=== PATIENT | female | born 1945 | race Caucasian/White ===

== ENCOUNTER 2024-09-24 08:47 | Observation (INO) ==
--- NOTE | 2024-08-22 09:54 | PAT Medication Instructions ---
Medication Instructions Date of Service August 22, 2024 Home Medications aspirin-caffeine 1,000 mg-65 mg oral powder packet 1 ea PO BID PRN Pain bisoprolol 5 mg-hydrochlorothiazide 6.25 mg tablet 1 tab PO HS cod liver oil 1 cap PO HS lisinopril 10 mg tablet 10 mg PO HS lorazepam 1 mg tablet 1 mg PO HS ASK your surgeon for instructions aspirin-caffeine 1,000 mg-65 mg oral powder packet 1 ea PO BID PRN Pain STOP taking 2 weeks before surgery (or as soon as possible if surgery is within 2 weeks) cod liver oil 1 cap PO HS Take evening before surgery bisoprolol 5 mg-hydrochlorothiazide 6.25 mg tablet 1 tab PO HS lisinopril 10 mg tablet 10 mg PO HS lorazepam 1 mg tablet 1 mg PO HS MORNING OF SURGERY: NOTHING TO EAT OR DRINK AFTER MIDNIGHT Other Notes If you have any questions please call us at [phone] or [phone] or [phone] or [phone]
--- NOTE | 2024-09-08 11:16 | Anesthesiology Consultation ---
Date of Service September 08, 2024 Assessment & Plan (1) Encounter for pre-operative examination: - medical clearance 08/20/24: "...heaviness in her chest and shortness of breath...scheduled to have surgery for her knee...gasping for breath when she is watching tv...atypical chest pain and shortness of breath...stress test...did complete a lexiscan stress test that was NEGATIVE for ischemia...symptoms have also resolved...can proceed to the scheduled surgery on 09/24/24 without any ad ditional testing..." - Outpatient joint assessment: Patient is currently scheduled for inpatient pathway. If re-evaluated and patient/surgeon requests outpatient pathway, patient is not ideal candidate for outpatient joint program. Chart Review Chart Review: Acceptable Risk for Surgery and Patient seen in Pre Admission Testing Teaching & Discussion Pre-Anesthesia Teaching/Discussion Notes: Instructed NPO after midnight before surgery, except medications with 15 cc of water. Medication instructions provided according to the PAT guidelines. History Surgery Operation Date: 09/24/24 09:05 Proposed Procedures p Right Total Knee Arthroplasty - Nav Starks MD Height/Weight Height: 5 ft 4 in Weight: 83.1 kg Allergies Allergy/AdvReac Type Severity Reaction Status Date / Time Sulfa (Sulfonamide Allergy Severe Tongue Verified 09/03/24 09:33 Antibiotics) swelling adhesive tape Allergy Intermediate Skin Verified 09/03/24 09:33 irritation Medications Home Medications Medication Instructions Recorded Confirmed Last Taken aspirin-caffeine 1,000 mg-65 mg 1 ea PO BID PRN Pain 08/21/24 08/21/24 Unknown oral powder packet bisoprolol 5 1 tab PO HS 08/21/24 08/21/24 Unknown mg-hydrochlorothiazide 6.25 mg tablet cod liver oil 1 cap PO HS 08/21/24 08/21/24 Unknown lisinopril 10 mg tablet 10 mg PO HS 08/21/24 08/21/24 Unknown lorazepam 1 mg tablet 1 mg PO HS 08/21/24 08/21/24 Unknown Past Medical History Medical History (Updated 09/08/24 @ 11:31 by Debbie Hayden PA-C) Anxiety Stable Chronic fatigue Since Covid infection, considered "long covid". doing well despite. Depression History of COVID-19 (~2021) ~2021: fatigue, moderate symptoms > persistent fatigue History of Lyme disease (~2020) ~2020, treated Hx of basal cell carcinoma s/p excision Hx of colonic polyps Hx of melanoma of skin (2022) Shoulder Hypertension controlled, stable per pt Osteoarthritis Patient denies h/o stroke, seizures, heart attack, heart failure, DM, blood clots/DVTs or blood transfusions. Exercise / Class Metabolic Activity III < 4 Walking/Shop/Light housework (denies chest discomfort or shortness of breath with usual activities) Past Family History Family History Other No family history of adverse response to anesthesia Past Surgical History Surgical History History of cataract surgery R/L History of colonoscopy History of left oophorectomy History of Mohs micrographic surgery for skin cancer History of root canal procedure Hx of melanoma excision (2022) Hx of motion sickness "Severe" - has used the scopalamine patch in the past PONV (postoperative nausea and vomiting) Past Anesthesia History No Hx of Anesthesia Complications and No Family Hx of Anesthesia Complications History of PONV History of PONV (has used scop patch in the past with benefit) and Hx of Motion Sickness Social History Smoking Status: Never smoker Do You Dip or Chew Tobacco: No Hx Alcohol Use: Yes Alcohol type: wine alcohol intake frequency: holidays/special occasions only Hx Substance Use: No substance use type: does not use Review of Systems Snoring, denies witnessed apneas. Patient denies chest pain, shortness of breath, dyspnea on exertion, reflux, fever, chills, cough, wheezing, or palpitations. Physical Exam Vital Signs Vitals BP 142/85 P 65 TEMP 98.2 SP02 95% on RA RESP 18 Physical Patient resting comfortably in chair in no acute distress, alert and oriented, responding appropriately throughout visit Full cervical extension range of motion without pain TMD 3.5 finger breadths Mallampati Score 2 Dentition: many crowns, denies chipped or loose teeth, caps, implants or bridges Lungs: normal respiratory effort. Good air movement, clear throughout to auscultation, no adventitious breath sounds Cardiac: regular rate and rhythm, no murmurs noted Carotid arteries: negative bruit bilat Testing Laboratory Results 08/20/24 WBC: 8.3 H/H: 15/45 PLATELETS: 173,000 SODIUM: 135 POTASSIUM: 3.8 CHLORIDE: 100 CO2: 26 BUN: 22 CREATININE: 0.8 GLUCOSE: 113 Alk phos: 97 AST: 36 ALT: 72 Electrocardiogram Date: 08/20/24 Sinus rhythm, rate 65 bpm Possible LA enlargement Chest X-Ray Date: 09/08/24 No acute findings. Stress Test Date: 09/04/24 ECG negative for ischemia
--- NOTE | 2024-09-24 06:18 | History & Physical Bridge Note ---
Date of Service September 24, 2024 History & Physical Bridge Note I have examined the patient, reviewed the History & Physical and in the interval since the performance of the History & Physical I have noted the following changes of clinical significance: consent and site verified.no changes noted
[~2024-09-24 08:47] MED LIST: BUPIVACAINE 0.5 % 5 MG/1 ML PF 10ML VIAL ONE; ROPIVACAINE 0.5% 5 MG/ML 30 ML VIAL ONE
[2024-09-24] MEDS ORDERED: ONDANSETRON INJ 2 MG/ML 2 ML VIAL ONE (09:01)
[2024-09-24] MEDS ORDERED: MIDAZOLAM HCL 1 MG/ML 2ML VIAL ONE (09:01)
[2024-09-24] MEDS ORDERED: PROPOFOL IV EMULSION 10 MG/ML 20 ML VIAL IV ONE (09:01)
[2024-09-24] MEDS ORDERED: DEXAMETHASONE SOD INJ 4 MG/ML VIAL ONE (09:01)
[2024-09-24] MEDS ORDERED: fentaNYL citrate PF 100 MCG/2 ML VIAL ONE (09:02)
[2024-09-24] MEDS: LR 60ML/HR IV SCH (09:22)
[2024-09-24] MEDS: LR 500ML BOLUS, THEN 15ML/HR IV SCH (09:22)
--- OUTSIDE RECORDS SUMMARY | 2024-09-24 09:22 | External Medical Summary | Continuity of Care Document ---
Author Name Unknown Organization [facility] [address] [id number] Address [address] [place] [id number] Encounter [facility] [id number] Date(s): 09/08/24 - 09/08/24 [facility] [address] [facility] [address] [facility] [address] [place] [id number] Encounter Diagnosis Osteoarthritis of right knee(Discharge Diagnosis) - 09/08/24 Preop examination(Discharge Diagnosis) - 09/08/24 Discharge Disposition: Home or Self Care Attending Physician: MD Tereza, Nav Bellamy Encounter Type: Clinic Allergies, Adverse Reactions, Alerts Substance Criticality Severity Reaction Reaction Severity Status sulfa drugs Unable to assess criticality Moderate swollen tong Active Adhesive bandage 1 Unable to assess criticality Mild Skin rash Active 1Patient states she does better with paper tape Medications bisoprolol-hydrochlorothiazide 5 mg-6.25 mg oral tablet TAKE 1 TABLET BY MOUTH ONCE DAILY Start Date: 08/14/24 Status: Ordered Repeat number: 1 lisinopril 10 mg oral tablet TAKE 1 TABLET BY MOUTH ONCE DAILY AT NIGHT Start Date: 08/14/24 Status: Ordered Repeat number: 1 LORazepam 1 mg oral tablet Start: 08/14/24 3:19:00 PM EST Start Date: 08/14/24 Status: Ordered Repeat number: 1 Mental Status 09/08/24 Barriers to Learning one year None evide nt Mandatory Health Literacy Documentation Yes Health Literacy Communication Barriers N ever Primary Language Belizean Problem List Condition Confirmation Course Effective Dates Status H ealth Status Informant Hypertension Confirmed Active Osteoarthritis of right knee Confirmed Active Diagnosis Diagnosis Type Effective Dates Health Status Clinical Service Informant Osteoarthritis of right knee Discharge Diagnosis 09/08/24 Preop examination Discharge Diagnosis 09/08/24 Non-Specified Procedures Procedure Date Related Diagnosis Body Site Status REMOVAL OF OVARY(S) Compl eted Vital Signs Most recent to oldest [Reference Range]: 1 Height 159.5 cm (09/08/24 8:53 AM) Patient Weight 82.7 kg (09/08/24 8:53 AM) Body Mass Index 32.51 kg/m2 (09/08/24 8:53 AM) Temperature [36.5-37.9 DegC] 36.4 DegC *LOW* (09/08/24 8:53 AM) Heart Rate 64 bpm (09/08/24 8:53 AM) Blood Pressure 144/82mmHg (09/08/24 8:53 AM) Social History Social History Type Response Smoking Status Never smoked cigaret carlos Sex Sex Representation Female (finding) Pre-OP H & P * LAINE Wu, Prashanth: PERFORM, MODIFY Event Display: Pre-OP H & P Authored Date: [id number] Name:KEYA WEEKS Patient Number:[id number] :1945 Date of Service:09/08/2024 Chief Complaint Pre op appt History of Present Illness Keya is an 79 year oldfemale who presents to the clinic today for a history and physical examination. She is scheduled forright total knee arthroplasty with 09/24/2024 at [facility]. She has had knee pain for 3 yearswhich has progressively worsened with time. She has had viscosupplementation as well as cortisone injections withlimited relief, almost no relief recently.Her pain is affecting her ability to function at this point. She takes aspirin 325 mg 2 tabs twice daily for the pain generally. She met with Dr. Starks todayandis agreeable with proceeding withsurgery. Patient underwent a corticosteroid injection into the left knee on 08/14/2024. Patient recently met with her primary care providerin preparation for this surgery. She was evaluated for some shortness of breath that she has been experiencingwhen carrying groceries. She attributes this toher knee bothering her, being somewhat overweight, and being deconditioned. She underwent a stress testand was subsequently clearedby her primary care for surgery. She is scheduled to seepreadcarteret health caretestingtoday. At her last primary care appointment theyobtained an EKG and ordered a CBC and a CMP. Patient lives at homealone however she had a severalfriends and contacts in the area whowill be able to help her. She would like to participate withphysical therapyat home for the first 2 weeks then [facility] in the past. She currently has a rolling walker as well as a shower chair but needs to obtainaraised toilet seat. She denies any history of blood clots, MRSA infection, bleeding or clotting disorders. Has not had any recent illnesses, fever, chills, chest pain, cough, abdominal pain, nausea, vomiting, diarrhea, or urinary symptoms. She has not had any recent dental infections nor does she have any dental work planned in theforeseeable future. Review of Systems Reviewed. Available in EMR. Physical Exam Vitals & Measurements T:36.4C HR:64(Monitored) BP:144/82 SpO2:99% HT:159.5cm WT:82.7kg WT:82.700kg(Dosing) BMI:32.51 BMI:32.51 kg/m2 CONSTITUTIONAL: well developed, well nourished. resting comfortably in no distress. pleasant. EARS: tm's without erythema or bulging. canals without erythema or edema. EYES: PERRL. conjunctiva normal MOUTH: oropharynx clear. dentition in good repair. no evidence of dental infection CARDIOVASCULAR: regular rate and rhythm. no murmurs, rubs, or gallops RESPIRATORY: no tachypnea. lungs clear to auscultation bilaterally ABDOMEN: normal bowel sounds MUSCULOSKELETAL: Right knee range of motion -10 to 110 degrees. Antalgic gaitsecondary to pain in the right knee with ambulation. NEUROLOGIC: no gross deficits Diagnostic Results Dr. Rodriguezviewedx-raysofboth kneesobtained on 08/14/2024showingmarked tricompartmental osteoarthritis with varus alignment, right worse than left. Assessment/Plan 1.Osteoarthritis of right knee Patient is scheduled for right total knee arthroplasty with Dr. Starks09/24/2024 at [facility]. She plans to stay overnight under observation with intent to return home the day after surgery ifable. History and physical performed today.Patient without any acute health concerns. She hadbeenevaluated by her primary care providerabout some shortness of breath that she has been experiencingwhich prompteda stress test that was normal. Patient thinks it is likely secondary toher knee bothering her, being slightly overweight,and being deconditioned. No other acute health concerns appreciated. She was subsequently cleared by her PCP for surgery. PCP note in chart. Expectant management discussedregarding surgery. Informed consentsurgery form completed byDr. Huang appointment prior Faraz&P. EKGobtained on 08/20/2024through primary care providerreviewed with no obvious concerns. Available in chart. Patient hada CBC and CMP obtainedthrough her primary care provider at that sametime, also available in chart. Additionalorders includingblood work, urinalysis, chest x-ray will be obtained at herpreadmissionsappointment following this appointment. Pain management plan: Patient will takePercocet following surgery.PDMP reviewed with no concerns. Medication will be senton day of discharge from the hospital. Dental antibioticprophylaxis was reviewed with hertoday. This can be discussed at [id number] visit. Patient was interested in a temporary disability parking placard. Paperwork was completed. [facility] to have it [facility]. DVT prophylaxis: Eliquis Patient was advised tohold her aspirinwhich she takes for pain7 days prior to surgery. She will holdall other NSAIDs 2 weeks before surgery. Encouraged her to switch toscheduled Tylenolup until midnightbefore her surgery. Dosing instructions reviewed. She will discuss her home medications withpreadmissions testingtoday to take and holdin the perioperative timeframe. Patient has a rolling walkerand shower chair. She will purchase a raised toilet seatthrough [employer]. Allergy profilesulfa drugs andBand-Aidadhesive. She does better with paper tape. [facility]. Sheunderstands to contact them to sched [facility] appointmentsstarting 2 weeks after surgery. She does not have any preferencesfor homehealth/PT. Prescriptions were provided for both today. She will need the protocol sheetather follow-up appointmentafter surgery. Reviewed the pertinent points of the surgery booklet with patient and encouraged to read through the entire booklet. Chlorhexidine wipes will be suppliedby her preadmissionsappointment. We reviewedthese instructions in the booklet. NPO after midnight the night before surgery. Follow up appointment 10/09 with Carlos Pablo PA-C at 13:30. Problem List/Past Medical History Ongoing Hypertension Osteoarthritis of right knee Medications Home bisoprolol-hydrochlorothiazide(bisoprolol-hydrochlorothiazide 5 mg-6.25 mg oral tablet) lisinopril(lisinopril 10 mg oral tablet) LORazepam(LORazepam 1 mg oral tablet) Allergies sulfa drugs (Moderate)swollen tong Adhesive bandage (Mild)Skin rash Social History Smoking Status Never smoked cigarettes Electronic Signature on File Electronically Reviewed/Signed by: Prashanth Wu PA-C Author Signature Dt/Tm:09/08/2024 02:36 PM Division of Sports Medicine Electronically Reviewed/Signed by: Nav Starks MD Cosigner Signature Dt/Tm: 09/08/2024 02:45 PM Manager Warehouse for Clinical Affairs, [facility] [place] Professor in Orthopaedics Medical Administrative Assistant, [facility] Sports Medicine Ortho Outpt Note * Cleo Zapata: PERFORM, MODIFY Event Display: Ortho Outpt Note Authored Date: [id number] Name:KEYA WEEKS Patient Number:[id number] :1945 Date of Service:09/08/2024 CHIEF COMPLAINT: Right knee pain and surgical consent. HPI: [id number] Shreyas presents today forevaluation of her right knee pain. She has been getting cortisone injections every 3 months for the last 2 years. She did try ROSENTHAL injections in her right knee with her last one being on July 07 and her last cortisone in April. She last had a leftknee cortisone injection on August 14, 2024.She is scheduled for right knee replacement on September 24. PHYSICAL EXAM: Focus on the right lower extremity: Femoral and sciatic nerve function intact. Hip motion supple and pain free Knee ROM: -10 - 110 DIAGNOSTIC REVIEW: I reviewed x-rays of both kneesdone previously which shows marked tricompartmental osteoarthritiswith varus alignment, right worse than left. IMPRESSION: Bilateral knee OA, right worse than left symptomatically and radiographically PLAN: Discussed risks, benefits, procedure, and recovery for right total knee replacement. Surgical consent obtained. H&P to be completed after evaluation today Follow-up as scheduled for surgery and post-operative appointments ATTESTATION: Cleo Williamson, scribing for and in the presence of, Nav Starks, on this date,09/08/2024 09:11:11. Electronic Signature on File Electronically Reviewed/Signed by: Cleo Zapata Author Signature Dt/Tm:09/08/2024 09:18 AM Electronically Reviewed/Signed by: Nav Satrks MD Cosigner Signature Dt/Tm: 09/08/2024 09:19 AM Manager Warehouse for Clinical Affairs, [facility] Professor in Orthopaedics Medical Administrative Assistant, [facility] Sports Medicine Insurance Providers Guarantor name: MICHELA Health Plan Information #: 2 Payer: [facility] Member Number: [id number] Policy Number: NA Group Number: NA Health Plan Information #: 1 Payer: MEDICARE Member Number: [id number] Policy Number: NA Group Number: NA
[2024-09-24] MEDS: TRANEXAMIC ACID 1,000 MG **IV Pre-op IV SCH (10:21)
[2024-09-24] MEDS: ceFAZolin 2000MG 2,000 MG/15 ML SYR IV SCH ×2 (10:48→18:24)
[2024-09-24] MEDS: ORTHO JOINT ANESTHETIC ONE (11:19)
[2024-09-24] MEDS: ROPIV 0.5% 246mg, Ketorolac 30mg, EPINEPHrine 0.5mg in NSS INFIL SCH (11:19)
[2024-09-24] MEDS ORDERED: ePHEDrine sulfate 50 MG/5 ML SYR ONE (11:26)
[2024-09-24] MEDS ORDERED: PHENYLEPHRINE 100MCG/ML 5ML SYR ONE (11:26)
[2024-09-24] MEDS ORDERED: ePHEDrine sulfate 50 MG/ML AMP ONE (11:36)
[2024-09-24] MEDS: TRANEXAMIC ACID 1,000 MG **IV Intra-op IV SCH (11:50)
--- NOTE | 2024-09-24 12:19 | Post Operative Brief Note ---
Immediate Post Op Note Date of Surgery September 24, 2024 Pre & Post Diagnosis Operation Date: 09/24/24 11:00 <No data on this case meets the specified criteria> Pre and postop diagnosis osteoarthritis right knee with flexion varus deformity pre and postop same I identified the patient and participated in the time-out.: Yes Procedure Operation Date: 09/24/24 11:00 <No data on this case meets the specified criteria> Cemented right total knee replacement Surgeon Nav Starks MD Treating Plant Operator rola/ no resident or fellow available Estimated Blood Loss 25 Findings Consistent with Post-Op Diagnosis Severe DJD with marked flexion varus deformity Fluids 1000 cc Complications None
--- NOTE | 2024-09-24 12:22 | Operative Report ---
Post Operative Report Pre & Post Diagnosis Operation Date: 09/24/24 11:00 <No data on this case meets the specified criteria> Osteoarthritis with flexion varus deformity right knee pre and postop diagnosis same I identified the patient and participated in the time-out.: Yes Procedure Operation Date: 09/24/24 11:00 <No data on this case meets the specified criteria> Cemented right total knee replacement Surgeon Nav Starks MD Internal Medicine Physician Assistant Adonisk/ no resident or fellow available Estimated Blood Loss 25 Findings Consistent with Post-Op Diagnosis Severe osteoarthritis with flexion varus deformity Fluids 1000 cc Specimens Bone pathology Drains None Complications None Indications Severe pain failed conservative management Description of Procedure After the patient was appropriate notified site verified consent verified antibiotics and has been given the right lower extremity was prepped and draped in his routine fashion tourniquet plated to 275 mmHg exsanguination limb with a rubber arthrograms for total of 48 minutes. Midline exposure utilized parapatellar arthrotomy performed synovectomy completed osteophytes resected. Distal femur entered cruciates resected tibia subluxated menisci resected. Was grade 4 disease extensive with marked clawing on the medial side of the medial side was very tight right extensive release to get the needed balance to neutral. Once this was all performed the distal femur was resected 11 mm proximal tibia 4 mm the extension gap was excellent. Tibia was then sized to a 3 and a femur to a 4 appropriate cutting block applied to the femur and the anterior posterior condylar and chamfer cuts made flexion gap checked it was excellent with a 6 mm meter spacer same as the extension gap. Box cut was then made a size 4 femur fit well. The tibia was then broached and reamed for size 3 and the trial spacing with a 6 and a 7 the sixth of the little bit more neutral extension. Was slightly tight in the 7 mm spacer. Patella was then everted and a 35 mm patella applied after a resection of roughly 8 mm. Seating holes were made patella tracked well. Ortho mix was then injected all about the knee trial implants were removed Ortho mix injected posteriorly the knee was then irrigated with Betadine Pulsavac and then soaked in Betadine for 3 minutes and then the permanent cemented into position tibia femur and patella in that order at 12 minutes Deflated minor bleeding points controlled lecture cautery EBL was roughly 25 cc. Trial spacer was then removed the permanent spacer seated the knee then closed at 40 degrees of flexion with #2 Vicryl 2-0 Vicryl standstill clips appropriate dressing was then applied the patient transferred recovery in satisfactory descending tolerated the procedure well. Family contacted. EBL again 25 cc or less crystalloid 1000 cc DVT prophylaxis to start tomorrow. Summary of implants myVBOuy rotating platform [employer]ynthe[employer] ATT UNE system. Size 4 right femur size 3 rotating platform tibial tray size 35 patella size 4 x 6 mm thick rotating platform polyethylene insert. I attest to the content of the Intraoperative Record and any orders documented therein. Any exceptions are noted below.
--- NOTE | 2024-09-24 12:23 | Orthopedic Progress Note ---
Date of Service September 24, 2024 Orthopedic Progress Note Patient underwent cemented right total knee replacement well. She is awake and alert. Denies chest pain shortness of breath fever chills nausea vomit or headache. Neurovascular check limited by spinal. Family contacted. Postop x- rays pending. Continue care pathway.
--- NOTE | 2024-09-24 12:24 | Discharge Summary ---
Date of Service September 25, 2024 Admission HPI Per Admitting Provider Admitted 23-hour to overnight admission for osteoarthritis right knee. Undergo cemented right total knee replacement. Principal Diagnosis Osteoarthritis right knee status post cemented right total knee replacement Discharge Data Allergies Allergy/AdvReac Type Severity Reaction Status Date / Time Sulfa (Sulfonamide Allergy Severe Tongue Verified 09/24/24 09:16 Antibiotics) swelling adhesive tape Allergy Intermediate Skin Verified 09/24/24 09:16 irritation Vaccinations None Consultations None Procedures Performed Operation Date: 09/24/24 11:00 <No data on this case meets the specified criteria> Cemented right total knee replacement Ordered Studies 09/24/24 05:00 US - OR guided needle placemen Routine Hospital Course (1) Status post right knee replacement: Care pathway for right total knee replacement Total Time Total Time Spent Total Time Spent (In Minutes): 10 Discharge Plan Discharge Items Patient Disposition: Home - Home Health Services Reason For Visit: Right Knee Osteoarthritis Discharge Diagnosis: Right knee status post right total knee replacement Condition on Discharge: Good Activity: Per Instructions section Lifting: Wait until after follow-up appointment Bathing: Keep incision dry Exercise/Sports: Wait until after follow-up appointment Driving/Machine Use: No driving until cleared by Dr. Starks Weightbearing: Full weightbearing Non-emergency contact: Surgeon Call non-emergency contact if: you have any medication questions, your pain is not controlled, your temperature is above 101, your wound has increased redness, your wound has increased drainage and your wound pain has increased Follow-up/Referrals: PCP,NO [Primary Care Provider] - Diet: Regular Addtl Attending Provider Instructions: DIET: * Resume previous diet. SPECIAL CARE INSTRUCTIONS: * Ice/Elevate as instructed. * Keep dressing clean, dry, intact. * Your surgical extremity may be discolored due to prepping agents used on the skin. A bluish-green tint is a normal variant and should not cause alarm. Call your doctor at [phone] if: * Temperature above 101 degrees * Pain not relieved by pain medicine ordered * There is increased drainage or redness from any incision * You have any unanswered questions, problems or concerns. New Medicine: * You will likely be taking one or more of these medications: 1. Percocet - Take, as directed, when you need it, every four to six hours to control your pain. 2. Iron Sulfate - Take three times each day for the month after surgery to help you replace the blood lost during surgery. 3. Eliquis - Thins your blood to lessen the chance of forming a blood clot. * The most common side effects of pain medicine and iron are nausea and constipation. If nausea or constipation is too much of a problem or if you have any questions about your new medicines or doses, call [facility] at . We will try to help you manage these issues. "VERY IMPORTANT TO READ AND REVIEW" Blood Clots and Blood Thinning Medicine: * You are given Eliquis during the immediate post-operative period to lessen the risk of blood clots forming in your legs and/or lungs. It is usually given for 4 weeks after surgery. Pain: * The immediate post-operative period after knee replacement surgery is often quite painful. * You are given a prescription for pain medicine. You should take it, as directed, when you need it, especially before physical therapy and before going to bed. Pain that interferes with sleep is very common and can last several months. * You will likely need pain medicine for the first four to six weeks. It will not stop all of the pain. The pain will lessen and as you feel better, you may change to milder pain medicine such as Tylenol. * The most common side effects of pain medicine are nausea and constipation, so don't take more than you need. Physical Therapy: * You will have physical therapy two or three times each week for four to six weeks after your surgery in order to regain your knee range of motion and to retrain your knee to work properly. * It is just as important to make sure you are getting your knee perfectly straight as it is to regain your knee bend. * Taking a pain pill an hour before therapy can help you have a more productive and comfortable therapy session if needed. Home Exercise: * You were shown a series of exercises (heel props, heel slides, etc.) in the hospital. Do these exercises three to four times each day including the exercises you were shown in physical therapy. Walking: * Get up and walk several times each day. For the first four weeks, try not to stand or walk for more than one hour at a time. If you do stand or walk for more than one hour, you will not hurt anything, but your knee and leg will likely swell. * As you feel comfortable, you may change from the walker or crutches to a cane and then to independent walking. SELF CARE INSTRUCTIONS AFTER TOTAL KNEE REPLACEMENT A. You may need to continue a physical therapy program after discharge from the hospital. There are several options available to you. Your doctor will assist you in selecting the best one for you. 1. An out-patient facility 2 to 3 times a week for therapy or home therapy. 2. Continue working on all exercises taught to you in the hospital. Your goals should be to increase bending of your knee to 90 degrees and beyond and to fully straighten your knee. B. You may progress at your own pace from walking with a walker or crutches to a cane; then to no assistive devices. C. Make walking a part of your daily routine. Be up as much as comfortable with rest periods throughout the day. Rest with leg elevation is very important. Use the ice wrap frequently for the first 3-4 weeks. D. There are no restrictions on activities. You may ride in a car, shop, participate in medical office receptionist and all social activities. E. Wear the long elastic stockings (AMIRAH hose) 20 hours a day for six weeks after surgery. They can be removed several times a day for laundering and for a shower. F. Do not place a pillow behind your knee when resting. A pillow at your ankle is okay. G. You may return to previous diet. VERY IMPORTANT TO READ AND REVIEW A. Take Eliquis (blood thinning medication) as directed by your doctor. B. There are a few signs you need to watch for after you are home. Call [facility] if you notice any of the followin. Increased severe knee pain. Some pain is expected especially when you exercise. 2. Increased swelling in your leg or knee; pain or swelling of the calf muscle in either lower leg. 3. Any fluid drainage from the incision. 4. Shortness of breath or chest pain. C. Please call [facility] at if you have any concerns or questions about your operation or recovery. The doctor or his nurse will return your call promptly. D. You must take antibiotics before dental work, bladder, bowel or other surgery. Call the office to obtain a prescription at least 2 days prior to your appointment. * CALL IF INCREASED PAIN, REDNESS, DRAINAGE OR FEVER GREATER THAT 101. * Sutures should be removed 12-14 days after surgery unless you are on chronic steriods, then it will be 14-18 days after surgery. Call your doctor if: * Temperature above 101 degrees F. * Pain not relieved by pain medicine ordered. * Increased drainage or redness from incision. * Notify your doctor with any questions or concerns. Start your Eliquis tonight with dinner. Take it 2x day x 4 weeks to prevent clots. Use your knee immobilizer when out of bed today and tomorrow. It can be discontinued entirely on Sunday morning Use your walker when ambulating Ice and elevate the knee frequently to reduce pain/swelling Pending Studies at Discharge: Yes Studies:: Bone pathology Stand-Alone Forms: [facility], Smoking Cessation Medications and DC Order Prescriptions: No Action bisoprolol-hydrochlorothiazide 5-6.25 mg Tablet 1 tab PO HS lisinopril 10 mg Tablet 10 mg PO HS lorazepam 1 mg Tablet 1 mg PO HS BC Arthritis 1,000-65 mg Powder In Packet 1 ea PO BID PRN (Reason: Pain) cod liver oil Capsule 1 cap PO HS tramadol 50 mg Tablet 50 mg PO HS PRN (Reason: Pain) Admission Data Admit Date/Time: 09/24/24 12:41 Attending Provider: Nav Starks Admit Provider: Nav Starks Primary Care Provider: PCP,NETTA
--- NOTE | 2024-09-24 12:34 | Operative Report ---
Post Operative Report Pre & Post Diagnosis Operation Date: 09/24/24 11:00 Pre-Op Diagnosis: Right Knee Osteoarthritis Post-Op Diagnosis: Right Knee Osteoarthritis I identified the patient and participated in the time-out.: Yes Procedure Operation Date: 09/24/24 11:00 Actual Procedures p Right Total Knee Arthroplasty(Right) - Nav Starks MD Surgeon ANTONIO Starks MD Alining Inspector Bev JANG no resident or fellow available Estimated Blood Loss 25 Findings Consistent with Post-Op Diagnosis see operative report Specimens see operative report Drains none Complications none Disposition Accompanied Patient To Recovery: Yes Indications This 79 year old female presented to the office with complaints of persisting right knee pain. She had tried conservative care measures including activity modification, OTC medications, and injection therapy without lasting improvement. She elected to proceed with surgical intervention after being educated about potential risks and outcomes. Preoperative imaging was obtained. Description of Procedure The patient was administered a spinal anesthetic and then taken to the operating room where she was given sedation. She was prepped and draped in the usual sterile fashion. Please see Dr. Starks's operative report for specifics of the procedure. I was present for the entire case from initial patient positioning through final wound closure. Assistance was provided in tissue retraction, hemostasis, trial implant placement, final implant placement, and final wound closure. The patient was taken to the recovery room in satisfactory condition. I attest to the content of the Intraoperative Record and any orders documented therein. Any exceptions are noted below.
--- NOTE | 2024-09-24 12:51 | XRay Report ---
XR knee RT 1 or 2V routine CLINICAL HISTORY: S/P R TKA COMPARISON: None pertinent FINDINGS: 2 views of the right knee demonstrate a arthroplasty with satisfactory position and alignm ent of the prosthetic components. Postoperative changes are noted in the soft tissues. IMPRESSION: Satisfactory postoperative appearance ACT 112: Negative or not required by law. Electronically signed by: Ann Mcdonald M.D. 09/24/2024 12:49 PM
[2024-09-24] MEDS ORDERED: METOCLOPRAMIDE HCL INJ 5 MG/ML 2 ML VIAL IV PRN (13:18)
[2024-09-24] MEDS ORDERED: HYDROmorphone INJ 0.5 MG/0.5 ML SYR IV PRN (13:18)
[2024-09-24] MEDS ORDERED: ALUMINUM/MAGNESIUM SUSP 30 ML UDC PO PRN (13:18)
[2024-09-24] MEDS ORDERED: NALOXONE HCL 0.4 MG/1 ML VIAL/CARP IV PRN (13:18)
[2024-09-24] MEDS ORDERED: MAGNESIUM HYDROXIDE SUSP 30 ML UDC PO PRN (13:18)
[2024-09-24] MEDS ORDERED: diphenhydrAMINE 50 MG/ML VIAL IV PRN (13:18)
[2024-09-24] MEDS ORDERED: bisacodyL 10 MG SUPP PR PRN (13:18)
[2024-09-24] MEDS ORDERED: ONDANSETRON INJ 2 MG/ML 2 ML VIAL IV PRN (13:18)
[2024-09-24 13:22] VITALS: RESP 18
[2024-09-24] MEDS: ACETAMINOPHEN 500 MG TAB PO SCH (13:32)
[2024-09-24] MEDS: KETOROLAC TROMETHAMINE 15 MG/ML VIAL IV SCH (13:32)
--- NOTE | 2024-09-24 13:38 | Anesthesiology Progress Note ---
Date of Service September 24, 2024 Anesthesia Post Procedure Vital Signs Vital Signs: Temp Pulse Pulse Resp BP BP Pulse Ox 09/24/24 13:18 36.6 C 88 18 144/71 H 96 09/24/24 12:55 36.5 C 87 24 139/58 L 97 09/24/24 12:45 88 13 126/71 99 09/24/24 12:35 87 20 137/67 100 09/24/24 12:29 36.3 C L 88 13 137/66 99 09/24/24 09:10 36.6 C 72 20 160/92 H 99 O2 Del Method 09/24/24 13:18 Room Air 09/24/24 12:55 Room Air 09/24/24 12:45 Room Air 09/24/24 12:35 Room Air 09/24/24 12:29 Room Air 09/24/24 09:10 Room Air Transfer of Care Handoff Completed per policy Notes Mental Status: alert / awake / arousable and participated in evaluation Patient Amnestic to Procedure: Yes Nausea / Vomiting: adequately controlled Pain: adequately controlled Airway Patency, RR, SpO2: stable & adequate BP & HR: stable & adequate Hydration State: stable & adequate Anesthetic Complications: no major complications apparent
[2024-09-24] MEDS: oxyCODONE HCL IR 5 MG TAB (IMMEDIATE RELEASE) PO PRN (15:21)
[2024-09-24] MEDS: ASCORBIC ACID 500 MG TAB PO SCH (18:20)
[2024-09-24] MEDS: FERROUS GLUCONATE 324 MG TAB PO SCH (18:20)
[2024-09-24] MEDS: DOCUSATE SODIUM 100 MG CAP PO SCH (20:34)
[2024-09-24] MEDS: lisinopril 10 MG TAB PO SCH (20:34)
[2024-09-24] MEDS: hydroCHLOROthiazide 25 MG TAB PO SCH (20:34)
[2024-09-24] MEDS: BISOPROLOL FUMARATE 5 MG TAB PO SCH (20:34)
[2024-09-24] MEDS: LORazepam 1 MG TAB PO SCH (20:34)
[2024-09-24] MEDS: SENNA 8.6 MG TAB PO SCH (20:34)
--- NOTE | 2024-09-25 06:35 | Orthopedic Progress Note ---
Date of Service September 25, 2024 Assessment & Plan Admission and Anticipated Discharge Date Admission Date: September 24, 2024 Orthopedic Progress Note Postop day #1 status post right total knee replacement. Patient doing well. She denies any chest pain shortness of breath fever chills nausea vomiting headache. Vital signs are stable she is afebrile. Neurovascular check from sciatic nerve is normal. Can do straight leg raise. Can do ankle and toe plantar and dorsiflexion well. Calves are nontender. A.m. labs are pending. Assessment doing well plan is to discharge to home today after PT OT initiate anticoagulation today. Continue care plan for total knee replacement.
[2024-09-25 07:15] VITALS: PULSE 71; TEMP 97.9; O2SAT 97
[2024-09-25 07:27] LABS: Hematocrit (blood only) 34.8 % (37.0-47.0); Hemoglobin 11.8 g/dl (12.0-16.0); Mean Corpuscular Hemoglobin 30.3 pg (25.0-34.0); Mean Corpuscular Hgb Conc 33.9 g/dL (32.0-36.0); Mean Corpuscular Volume 89.2 fL (80.0-100.0); Mean Platelet Volume 11.1 fL (9.4-12.4); Platelet Count 186 K/uL (130-400); RDW Coefficient of Variation 12.9 % (11.5-14.5); RDW Standard Deviation 42.2 fL (36.4-46.3); White Blood Count 18.36 K/ul (4.8-10.8)
[2024-09-25 07:45] LABS: BUN Creatinine Ratio 25.7 (10-20); Calcium 8.7 mg/dl (8.6-10.3); Creatinine Clr Calc Pharmacy 65.7 ml/min; Potassium 4.5 mmol/L (3.5-5.1)
[2024-09-25] MEDS: APIXABAN 2.5 MG TAB PO SCH (08:14)
[2024-09-25] MEDS: MULTIVITAMIN TAB PO SCH (08:14)
[2024-09-25] MEDS: dexAMETHasone 10 MG in SYRINGE 0 ML IV SCH (08:14)
--- NOTE | 2024-09-25 09:14 | Orthopedic Progress Note ---
Date of Service September 25, 2024 Assessment & Plan (1) Status post right knee replacement: Plan: The patient was educated regarding today's findings. Conservative care measures were discussed. Her dressings were changed by me. Gato stocking was applied. Continue the knee immobilizer today and tomorrow. She may discontinue it entirely on Sunday. She will return to home with home health services. Written discharge instructions were provided. Prescriptions for Percocet and Eliquis 2.5 mg were sent to her pharmacy. Follow-up in the office 2 weeks from today for staple removal. Her dressing should stay in place over the weekend. It can be changed on Sunday as needed for soiling. Call the office with any other concerns. Admission and Anticipated Discharge Date Admission Date: September 24, 2024 Subjective This 79 year old female is seen today in her room. She is 1 day status post right total knee arthroplasty. She states she is doing well. She finished her breakfast. She has already walked in the hallway with physical therapy. She is waiting for occupational therapy. She denies any chest pain, shortness of breath, nausea, vomiting, or abdominal pain. She denies any numbness or tingling. Her pain has been controlled with Percocet. She feels ready for discharge to home. No other complaints. Review of Systems Review of Systems: Unchanged from yesterday. Physical Exam Physical Exam: General: Well-developed, well-nourished, elderly female, in no acute distress. Sitting in bed. Alert and oriented. Skin: Warm and dry with good turgor. No rashes. Postsurgical dressing is in place on the right leg. Upon removal, she has a small amount of bleeding on the dressings distally. There is no active bleeding from her surgical site. Eliu are intact. Wound edges are well-approximated. Expected postoperative ecchymosis. Mild edema in the lower leg and ankle. Musculoskeletal: The patient has intact motor function of her toes, ankle, and knee. She is able to perform a straight leg raise. She has full terminal extension. Flexion to at least 55 degrees. Neurologic: Gross sensation is intact across the right leg by soft touch. Peripheral pulses are 2+. Results & Data Vital Signs (Past 12 Hours) Vital Signs Temp Pulse Resp BP BP Pulse Ox O2 Del Method 09/25/24 07:12 36.6 C 71 18 137/76 97 Room Air 09/25/24 03:40 36.7 C 77 18 111/65 96 Room Air 09/25/24 00:04 36.9 C 90 18 102/50 L 94 Room Air Laboratory Results CBC obtained this morning shows a white count of 18.36. H&H of 11.8 and 34.8. Platelets normal at 186,000. PRP obtained this morning shows sodium 133, potassium 4.5, chloride 100, and CO2 28. BUN of 18 and creatinine of 0.7 are normal. Glucose this morning was 173. Calcium 8.7.
[2024-09-25 10:35] VITALS: BP 111/65
== END 2024-09-25 11:34 | disposition home health service (06) ==
LOC: ASU 08:47 → 3E 08:47